=== PATIENT | female | born 1995 | race Caucasian/White ===

== ENCOUNTER 2018-02-04 17:20 | Outpatient (CLI) | payer MEDICAID ==
[2018-02-04 17:55] LABS: APPEARANCE,URINE SLIGHTLY-CLOUDY; BILIRUBIN,URINE NEGATIVE (NEGATIVE); COLOR,URINE YELLOW; GLUCOSE, URINE NEGATIVE (NEGATIVE); KETONES,URINE NEGATIVE (NEGATIVE); LEUKOCYTE ESTERASE,URINE MODERATE (NEGATIVE); NITRITE,URINE NEGATIVE (NEGATIVE); PROTEIN,URINE NEGATIVE (NEGATIVE); URINE SPECIFIC GRAVITY 1.008; UROBILINOGEN,URINE NEGATIVE mg/dL (<2.0)
[2018-02-04 18:09] LABS: URINE AMPHETAMINES SCREEN NEGATIVE; URINE BARBITURATES SCREEN NEGATIVE; URINE BENZODIAZEPINES SCREEN NEGATIVE; URINE COCAINE SCREEN NEGATIVE; URINE MARIJUANA (THC) SCREEN NEGATIVE; URINE METHADONE SCREEN NEGATIVE; URINE PHENCYCLIDINE SCREEN NEGATIVE
[2018-02-04] MEDS ORDERED: CEFAZOLIN 1 GM/D5W RTU 1 GM/50 ML RTUPB IV PRN (19:14)
[2018-02-04] MEDS ORDERED: RINGERS SOLUTION,LACTATED 1,000 ML IV ONE (19:18)
[2018-02-04] MEDS ORDERED: CEFAZOLIN 1 GM/D5W RTU 1 GM/50 ML RTUPB IV ONE (19:25)
[2018-02-04] MEDS ORDERED: MAG HYDROX/AL HYDROX/SIMETH SUSP 30 ML UDCUP PO ONE (19:59)
[2018-02-04] MEDS ORDERED: MAG HYDROX/AL HYDROX/SIMETH SUSP 30 ML UDCUP ONE (20:03)
--- NOTE | 2018-02-04 20:35 | Non Stress Test Report ---
Non Stress Test Datetime Report Generated by CPN: 02/04/2018 20:34 DEMOGRAPHIC EGA NST: 33.6 INDICATION Indication for Study: Ordered by Provider; Other Indication for Study (NST) Other: Labor check VITAL SIGNS Temperature - NST: 97.7 Pulse - NST: 75 RESP - NST: 14 NBPSYS NST: 122 NBPDIA NST: 68 URINE RESULTS Urine Protein, NST: Negative Urine Ketones - NST: Negative Urine Glucose - NST: Negative Urine Blood - NST: Negative MONITORING Monitor Explained: Monitor Explained; Test Explained; Patient Verbalized Understanding Time on Monitor: 02/04/2018 17:43 Time off Monitor: 02/04/2018 20:23 NST Duration: 160 NST INTERVENTIONS NST Interventions: PO Hydration Physician Notified NST: Dr. Carlisle BABY A: [id number] BABY A Movement : Present Contraction Frequency : None noted FHR Baseline : 135 Accelerations : 15X15 Decelerations : None Variability : Moderate 6-25bpm NST Review: Meets Criteria for Reactive NST NST Review and Verified By : James Gerber RN NST Results: Reactive NST REPORT Report Trigger: Send Report
== END 2018-02-04 21:56 | disposition home or self-care (01) ==
LOC: LC 17:20
PROVIDERS: ATTEND Obstetrics & Gynecology
PROC: 4A1HXCZ Monitoring of Products of Conception, Cardiac Rate, External Approach (ICD-10-PCS; principal; 2018-02-04)
DX: Z34.83 Encounter for supervision of other normal pregnancy, third trimester (principal)
CPT/HCPCS: 59025; 81001; 80307; J0690; J3490